=== PATIENT | male | born 1960 | race Caucasian/White ===

== ENCOUNTER 2020-12-26 11:02 | Outpatient (REF) | payer BC, SELFPAY ==
--- NOTE | ~2020-12-26 | XR_ITS ---
EXAMINATION: XR LUMBOSACRAL SPINE CLINICAL INFORMATION: Radiculopathy COMPARISON: None TECHNIQUE: Three views of the lumbosacral spine. FINDINGS: Normal alignment and lumbar lordosis. There is mild multilevel degenerative disc disease. No fracture or focal osseous lesion. XR/XR lumbar spine 2-3V IMPRESSION: Mild degenerative disc disease at L2-L3 and L3-L4. No acute abnormality.
== END 2020-12-26 11:03 | disposition home or self-care (01) ==
LOC: HO.HMGCX 11:02
PROVIDERS: PCP Internal Medicine; Visit Provider Internal Medicine
DX: M54.16 Radiculopathy, lumbar region (principal); M54.32 Sciatica, left side
CPT/HCPCS: 72100

== ENCOUNTER 2023-06-10 08:07 | Outpatient (AMB) | payer BC, SELFPAY ==
--- NOTE | 2023-06-10 08:07 | MHC.OFFWIV ---
Intake Vital Signs 06/10/23 08:08 Height 6 ft 1.5 in Weight 194 lb BMI 25.2 BP 112/80 Blood Pressure Location Rt brachial Position Sitting Pulse 79 Pulse Source Pulse Oximeter Temp 98.1 F Temp Source Temporal Artery Scan Pulse Oximetry (%) 99 Intake Visit Reasons: EP neuropothy legs/feet pain Intake Note: pt is here for c/o neuropathy in legs and feet Patient Tobacco Use Status: Never used Tobacco Allergies No Known Allergies Allergy (Verified 06/10/23 08:08) Do you need a note to return to daycare/school/sports/work: Yes HPI HPI Comments History of Present Illness Details This is a 63-year-old male who presents to the office today for sick visit. Patient complaining of bilateral lower extremity nerve pain. Patient has a history of peripheral neuropathy, which has been ongoing for several years. He states this pain has been getting worse and he is having difficulty standing at work. He presented to the office requesting a work visit for the next several days. Patient is otherwise feeling well without chest pain, shortness of breath, abdominal pain, nausea/vomiting/diarrhea, lightheadedness/dizziness, or fever/chills. [facility] Social History Alcohol intake: never Patient Tobacco Use Status: Never used Tobacco Review of Systems Const All systems reviewed & are unremarkable except as noted in HPI and below Reports no additional complaints Eyes Reports no additional complaints ENT Reports no additional complaints Card Reports no additional complaints Resp Reports no additional complaints GI Reports no additional complaints Reports no additional complaints Musc Reports no additional complaints Skin/Breast Reports system reviewed and no additional complaints, except as documented Neuro Reports no additional complaints Psych Reports no additional complaints Endo Reports no additional complaints Kenny/Lymph Reports no additional complaints Aller/Immun Reports no additional complaints Physical Exam Vital Signs: Last Vital Signs Temp 98.1 F 06/10/23 08:08 Pulse 79 06/10/23 08:08 BP 112/80 06/10/23 08:08 Pulse Ox 99 06/10/23 08:08 BMI result Body Mass Index 25.2 Const Other: Vital signs reviewed. Constitutional: Non-toxic appearing. No acute distress. Well-developed and well-nourished. HEENT: Normocephalic and atraumatic. Skin: Warm and dry. No rashes or lesions noted. Chronic venous stasis changes of bilateral lower extremities. Neck: Full and painless range of motion. No cervical lymphadenopathy. Cardio: Regular rate. No lower extremity edema. No JVD. Pulmonary: No respiratory distress. No accessory muscle usage. Gastrointestinal: Soft, nontender, and nondistended in all 4 quadrants. Musculoskeletal: Normal range of motion in joints throughout the body. No deformity or other signs of injury. Neuro: Alert and oriented x4. Cranial nerves 2-12 grossly intact. No focal deficits appreciated. Psych: Normal mood and affect. Assessment & Plan Assessment & Plan (1) Peripheral neuropathy: Code(s): G62.9 - Polyneuropathy, unspecified Plan: This is a 63-year-old male presenting to the office complaining of worsening peripheral neuropathy requesting a work note. Patient was provided with a work note for today and tomorrow. His gabapentin was increased from 200 mg 3 times daily to 400 mg 3 times daily. He was encouraged to follow-up with his primary care physician as well as his women's activities adviser for further evaluation and management. Patient's vital signs are stable, he is overall nontoxic appearing, in his physical exam is benign. Patient is safe for discharge home. Patient advised to follow-up here or proceed to the emergency room for worsening or persistent symptoms. Patient verbalizes understanding and he is in agreement with the plan. Medications: New gabapentin 400 mg PO TID 60 caps 0RF Coding Level of Care Code Est Pt Level 3 (92024) Diagnoses Peripheral neuropathy G62.9
[2023-06-10 08:08] VITALS: BP 112/80; PULSE 79; TEMP 36.7; O2SAT 99; BMI 25.2
== END 2023-06-10 08:37 | disposition home or self-care (01) ==
PROVIDERS: PCP Internal Medicine; Visit Provider Physician Assistant Medical
DX: G62.9 Polyneuropathy, unspecified (principal)
CPT/HCPCS: 99213

== ENCOUNTER 2023-06-25 09:56 | Outpatient (AMB) | payer BC, SELFPAY ==
--- NOTE | 2023-06-25 11:22 | MHC.OFFWIV ---
Intake Vital Signs 06/25/23 11:28 Height 6 ft 1.5 in Weight 191 lb BMI 24.9 BP 132/68 Blood Pressure Location Rt brachial Position Sitting Pulse 71 Pulse Source Pulse Oximeter Temp 98.0 F Temp Source Oral Pulse Oximetry (%) 99 Oxygen Delivery Method Room Air Intake Visit Reasons: EP, left knee pain Intake Note: Pt is here today c/o Lt Knee pain due to not having cartilage Patient Tobacco Use Status: Never used Tobacco Allergies No Known Allergies Allergy (Verified 06/10/23 08:08) HPI EP, left knee pain HPI Details Patient is a 63-year-old male comes to the walk-in clinic complaining of acute flare-up of chronic left knee pain. He knows that he has advanced degenerative joint disease in his left knee, and he states that he has no cartilage left and had refused steroid injections with his family cigarette making examiner in the past when it was offered. He wears elastic brace for support when needed, and takes ibuprofen as needed for flare-ups. He states that his symptoms returned out of no where with this most recent flare-up, and that it makes walking difficult as well as working. [facility] Social History Alcohol intake: never Patient Tobacco Use Status: Never used Tobacco Physical Exam Vital Signs: Last Vital Signs Temp 98.0 F 06/25/23 11:28 Pulse 71 06/25/23 11:28 BP 132/68 06/25/23 11:28 Pulse Ox 99 06/25/23 11:28 Oxygen Delivery Method Room Air 06/25/23 11:28 BMI result Body Mass Index 24.9 Const General: cooperative, healthy appearing, alert, awake, Physically active and well groomed; No anxious, diaphoretic, ill appearing, intoxicated appearing, poor hygiene or tired appearing Nutritional Appearance: average body habitus Limitations: no limitations Cardio Rate: regular rate Skin Other: Good color, warm and dry Extrem Left lower extremity: normal to inspection, normal capillary refill, knee Details: normal to inspection, tenderness, abnormal ROM, knee ligament exam normal and other (No erythema, fluctuance or streaking); no swelling, no lacerations, no ecchymosis, no deformity and no unusual warmth and foot Details: normal capillary refill and vascular exam Details: dorsalis pedis pulse present, posterior tibial pulse present and normal capillary refill; abnormal ROM, no cyanosis and no edema Psych Appearance: grossly normal Mental Status: mental status grossly normal Speech and movement: Normal speech and movement present Affect: normal affect Attitude: cooperative Thought process: Normal thought process present Insight: Good insight present (Psych) Judgement: Good judgement present (Psych) Assessment & Plan Assessment & Plan (1) Degenerative joint disease: Code(s): M19.90 - Unspecified osteoarthritis, unspecified site Qualifiers: Osteoarthritis location: knee Osteoarthritis type: unspecified Laterality: left Qualified Code(s): M17.12 - Unilateral primary osteoarthritis, left knee Plan: Patient is a 63-year-old male with advanced degenerative joint disease in his left knee. No worrisome signs of septic joint, or polyarthropathy today. He had refused steroid injections with his family cigarette making examiner in the past, but I discussed this might be the point where he considers it. How start him on meloxicam as he has not trialed any nonsteroidals other than ibuprofen until this point. He can also trial lidocaine patch to the most painful area on the medial joint line. he will continue the gabapentin, which he is taking for this as well as diabetic neuropathy and sciatica from an L4 injury. We discussed him following up with his cigarette making examiner on Tuesday, which he agreed to do. In the meantime he will continue wearing his elastic brace to the knee, and can potentially get a hinge 1 in the future. We also discussed trialing a cane to help with his stability, which is altered with this and flare up. Work note given for today Medications: New lidocaine 4% 1 patch topical BID PRN 30 ea 0RF pain meloxicam take with food 15 mg PO DAILY 14 tabs 0RF Coding Level of Care Code Est Pt Level 4 (60048) Diagnoses Osteoarthritis of left knee, unspecified osteoarthritis type M17.12 Osteoarthritis location: knee Osteoarthritis type: unspecified Laterality: left
[2023-06-25 11:28] VITALS: BP 132/68; PULSE 71; TEMP 36.7; O2SAT 99; BMI 24.9
== END 2023-06-25 12:34 | disposition home or self-care (01) ==
PROVIDERS: PCP Internal Medicine; Visit Provider Physician Assistant Medical
DX: M17.12 Unilateral primary osteoarthritis, left knee (principal)
CPT/HCPCS: 99214

== ENCOUNTER 2023-07-13 09:25 | Outpatient (AMB) | payer BC, SELFPAY ==
[2023-07-13 09:27] VITALS: BP 130/76; PULSE 74; O2SAT 99; BMI 24.3
--- NOTE | 2023-07-13 09:27 | MHC.PC.OV ---
Vital Signs 07/13/23 09:27 Height 6 ft 1.5 in Weight 187 lb BMI 24.3 BP 130/76 Blood Pressure Location Rt brachial Position Sitting Pulse 74 Pulse Source Pulse Oximeter Pulse Oximetry (%) 99 Oxygen Delivery Method Room Air Intake Visit Reasons: follow up walk in knee pain Allergies No Known Allergies Allergy (Verified 07/13/23 09:28) Medication List - Last Reconciled 07/13/23 by Deepthi Petersen MD atorvastatin 10 mg PO DAILY gabapentin 400 mg PO TID lidocaine 4% 1 patch topical BID PRN lisinopril 2.5 mg PO DAILY loratadine (Claritin) 10 mg PO DAILY meloxicam 15 mg PO DAILY metformin ER 500 mg PO BID Tobacco use date assessed: 07/13/23 Dental Screening Dental Screen Date: 07/13/23 Did you have a dental visit in the last 12 months?: No Did you have a dental problem in the last 6 months where you did not have access to dental care?: No Was dental information given to patient?: No HPI follow up walk in knee pain HPI Details 63-year-old gentleman who was last seen November of 2020 and did not come in for visits after that came in today with a chief complaint of both knee pain Patient is diabetic but has not had labs done in 2 years, he is seeing another provider for that Requesting to see an clinical transformation specialist, referral placed We have a detailed discussion regarding his care, in order for me to provide care for the patient I am going to need periodic blood test which patient is reluctant to do. For that reason it will be advisable for patient to stay with the current provider who is managing his diabetes, hypertension and lipid disorder. [facility] Social History Housing: Condominium Alcohol intake: never Patient Tobacco Use Status: Never used Tobacco e-Cigarette/Vaping Use: Never Used service: No Current occupational status: employed Cognitive needs: No Hearing needs: No Vision needs: Yes Questionnaire PHQ-9 Over the last 2 weeks, how often have you been bothered by any of the following problems? 1. Little interest or pleasure in doing things: not at all 2. Feeling down, depressed, or hopeless: not at all 3. Trouble falling or staying asleep, or sleeping too much: not at all 4. Feeling tired or having little energy: not at all 5. Poor appetite or overeating: not at all 6. Feeling bad about yourself - or that you are a failure or have let yourself or your family down: not at all 7. Trouble concentrating on things, such as reading the newspaper or watching television: not at all 8. Moving or speaking so slowly that other people could have noticed. Or the opposite - being so fidgety or restless that you have been moving around a lot more than usual: not at all 9. Thoughts that you would be better off or of hurting yourself in some way: not at all Total score: 0 Depression Screening Interpretation: Negative Depression Screening Done: Yes 74274 - PHQ-9 Billing: Yes Source: Developed by Drs. Jose Olivo, Rosalia Flynn, Harry Bertrand and colleagues, with an educational cecile from [employer]. Thrive Questionnaire Date Thrive assessed: 07/13/23 I am a: Patient What is your living situation today?: I have a steady place to live Within the past 12 months, did the food you bought not last and you didn't have the money to get more?: Never true Within the past 12 months, did you worry whether your food would run out before you got money to buy more?: Never true Do you have trouble paying for medicines?: No Do you have trouble getting transportation to medical appointments?: No Do you have trouble paying your heating and electricity bill?: No Do you have trouble taking care of your child, family member or friend?: No Do you have trouble with day-to-day activities such as bathing, preparing meals, shopping, managing finances, etc.?: No Are you currently unemployed and looking for a job?: No Are you interested in more education?: No Please select the resources that you would like help with: None Currently or been in a relationship where the following occur: no concerns reported AUDIT C Alcohol Use Questionnaire (AUDIT-C) 1. How often do you have a drink containing alcohol?: Never 3. How often do you have six or more drinks on one occasion?: Never Total Score: 0 Score Reviewed/Action Taken: Yes JUAN JOSE-7 AMB Questionnaire JUAN JOSE-7 Date JUAN JOSE - 7 assessed: 07/13/23 Feeling nervous, anxious, or on edge: 0 = Not at all Not being able to stop or control worryin = Not at all Worrying too much about different things: 0 = Not at all Trouble relaxin = Not at all Being so restless that it is hard to sit still: 0 = Not at all Becoming easily annoyed or irritable: 0 = Not at all Feeling afraid as if something awful might happen: 0 = Not at all Total JUAN JOSE-7 score (0-4 normal; 5-9 mild; 10-14 moderate; 15-21 severe): 0 Source: Developed by Drs. Jose Olivo, Rosalia Flynn, Harry Bertrand and colleagues, with an educational cecile from [employer]. JUAN JOSE-7 Assessment Billing JUAN JOSE-7 Assessment Tool: JUAN JOSE-7 Assessment 53917 Review of Systems Const Denies chills and Denies fever(s) ENT Denies epistaxis and Denies nasal discharge Card Denies chest pain Resp Denies chest congestion, Denies cough and Denies hemoptysis GI Denies diarrhea and Denies nausea Skin/Breast Denies rash Neuro Reports no additional complaints Psych Reports no additional complaints Endo Reports no additional complaints Physical exam (Primary Care) Vital Signs: Last Vital Signs Pulse 74 07/13/23 09:27 BP 130/76 07/13/23 09:27 Pulse Ox 99 07/13/23 09:27 Oxygen Delivery Method Room Air 07/13/23 09:27 BMI result Body Mass Index 24.3 Tobacco/Smoking Status: Tobacco use Status Tobacco use date assessed 07/13/23 07/13/23 09:36 Patient Tobacco Use Status Never used Tobacco 07/13/23 09:36 e-Cigarette/Vaping Use Never Used 07/13/23 09:36 PHQ-9: PHQ-9 Score PHQ-9: Total score 0 07/13/23 10:18 Depression Screening Interpretation: Negative Thrive Assessment: Date of Thrive Assessment Date Thrive assessed 07/13/23 07/13/23 10:18 Currently or been in a relationship where the following occur: no concerns reported Const General: cooperative, comfortable and no acute distress Orientation/consciousness: patient oriented x3 HENMT Head: Yes normocephalic Eyes General: appearance normal, both eyes and all related structures Neck Neck: Yes supple Resp Effort & Inspection: normal respiratory effort, no cough and no stridor Cardio Rhythm: regular rhythm Heart sounds: S1 normal heart sound present and S2 normal heart sound present Skin General skin exam: turgor normal Neuro General: patient oriented x3, tone normal and moves all extremities Extrem Other: Limited range of motion both knees with tenderness to palpation, no swelling Right lower extremity: no edema Left lower extremity: no edema Assessment and Plan Assessment & Plan (1) Bilateral primary osteoarthritis of knee: Code(s): M17.0 - Bilateral primary osteoarthritis of knee (2) Non-insulin dependent type 2 diabetes mellitus: Code(s): E11.9 - Type 2 diabetes mellitus without complications (3) Lipid disorder: Code(s): E78.9 - Disorder of lipoprotein metabolism, unspecified (4) Hypertension, essential: Code(s): I10 - Essential (primary) hypertension (5) Paresthesia of lower extremity: Code(s): R20.2 - Paresthesia of skin Plan 63-year-old gentleman who was last seen November of 2020 and did not come in for visits after that came in today with a chief complaint of both knee pain Patient is diabetic but has not had labs done in 2 years, he is seeing another provider for that Requesting to see an clinical transformation specialist, referral placed We have a detailed discussion regarding his care, in order for me to provide care for the patient I am going to need periodic blood test which patient is reluctant to do. For that reason it will be advisable for patient to stay with the current provider who is managing his diabetes, hypertension and lipid disorder. Patient most likely also have peripheral neuropathy as he has paresthesias both feet which is chronic Orders: Orders Complete Blood Count Auto Diff Today E11.9 - Type 2 diabetes mellitus without complications, E78.9 - Disorder of lipoprotein metabolism, unspecified, I10 - Essential (primary) hypertension, M17.0 - Bilateral primary osteoarthritis of knee, R20.2 - Paresthesia of skin Comprehensive Inglis. Panel Fast Today E11.9 - Type 2 diabetes mellitus without complications, E78.9 - Disorder of lipoprotein metabolism, unspecified, I10 - Essential (primary) hypertension, M17.0 - Bilateral primary osteoarthritis of knee, R20.2 - Paresthesia of skin Microalbumin, Random (w Creat) Today E11.9 - Type 2 diabetes mellitus without complications, E78.9 - Disorder of lipoprotein metabolism, unspecified, I10 - Essential (primary) hypertension, M17.0 - Bilateral primary osteoarthritis of knee, R20.2 - Paresthesia of skin Vitamin B12 Today E11.9 - Type 2 diabetes mellitus without complications, E78.9 - Disorder of lipoprotein metabolism, unspecified, I10 - Essential (primary) hypertension, M17.0 - Bilateral primary osteoarthritis of knee, R20.2 - Paresthesia of skin Hemoglobin A1c Today E11.9 - Type 2 diabetes mellitus without complications, E78.9 - Disorder of lipoprotein metabolism, unspecified, I10 - Essential (primary) hypertension, M17.0 - Bilateral primary osteoarthritis of knee, R20.2 - Paresthesia of skin Lipid Panel Today E11.9 - Type 2 diabetes mellitus without complications, E78.9 - Disorder of lipoprotein metabolism, unspecified, I10 - Essential (primary) hypertension, M17.0 - Bilateral primary osteoarthritis of knee, R20.2 - Paresthesia of skin TSH reflex Free T4 Today E11.9 - Type 2 diabetes mellitus without complications, E78.9 - Disorder of lipoprotein metabolism, unspecified, I10 - Essential (primary) hypertension, M17.0 - Bilateral primary osteoarthritis of knee, R20.2 - Paresthesia of skin Referrals Orthopedics Referral M17.0 - Bilateral primary osteoarthritis of knee Coding Level of Care Code Est Pt Level 4 (05134) Diagnoses Bilateral primary osteoarthritis of knee M17.0 Non-insulin dependent type 2 diabetes mellitus E11.9 Lipid disorder E78.9 Hypertension, essential I10 Paresthesia of lower extremity R20.2 Additional Codes JUAN JOSE-7 Assessment Billing - JUAN JOSE-7 Assessment Tool: JUAN JOSE-7 Assessment 79366 ([id number]) Comment 30 minutes spent [id number] with the patient
== END 2023-07-13 16:45 | disposition home or self-care (01) ==
PROVIDERS: PCP Internal Medicine; Visit Provider Internal Medicine
DX: M17.0 Bilateral primary osteoarthritis of knee (principal); E11.9 Type 2 diabetes mellitus without complications; E78.9 Disorder of lipoprotein metabolism, unspecified; I10 Essential (primary) hypertension; R20.2 Paresthesia of skin
CPT/HCPCS: 99214